=== PATIENT | female | born 1945 | race African-American/Black ===

== ENCOUNTER 2022-05-28 13:49 | Inpatient (IN) | payer OTHER, MEDICAID ==
[~2022-05-28] VITALS: Ht 165.1 cm; Wt 61.2 kg
[2022-05-28] MEDS ORDERED: MORPHINE SULFATE 4 MG/ML CPJ (NOT FOR IM USE) IV STA (14:26)
[2022-05-28] MEDS ORDERED: ONDANSETRON HCL 4MG/2ML INJ IV STA (14:26)
[2022-05-28] MEDS ORDERED: SODIUM CHLORIDE 0.9% 1,000 ML IV ONE (14:30)
[2022-05-28 16:17] LABS: BASOPHILS % 0.7 % (0.0-2.0); CHLORIDE 102 mEq/L (98-107); EOSINOPHILS % 0.5 % (0.0-5.0); HEMATOCRIT. 36.2 % (36.0-48.0); HEMOGLOBIN. 11.6 g/dL (12.0-16.0); LYMPHOCYTES % 14.3 % (20.0-50.0); MEAN CORPUSCULAR VOLUME 96.9 fL (81.0-99.0); MEAN PLATELET VOLUME 9.7 fl (7.4-10.4); MONOCYTES % 7.9 % (2.0-8.0); NEUTROPHILS % 76.6 % (40.0-76.0); PLATELET 162 x1000/uL (130-400); RED BLOOD CELL COUNT 3.74 mill/uL (4.2-5.4)
[2022-05-28 16:27] LABS: PARTIAL THROMBOPLASTIN TIME 31.9 sec (23.4-31.0); PROTHROMBIN TIME 10.3 sec (9.6-11.0)
[2022-05-28] MEDS ORDERED: SODIUM POLYSTYRENE SULFONATE 15 G/60 ML BOT PO ONE (17:00)
[2022-05-28] MEDS ORDERED: DEXTROSE 50% WATER 50ML SYRINGE IV ONE (17:00)
[2022-05-28] MEDS ORDERED: ALBUTEROL (0.083%) 2.5MG/3ML NEB HHN ONE (17:00)
[2022-05-28] MEDS ORDERED: SODIUM BICARBONATE 8.4% 1 MEQ/ML 50ML SYR IV ONE (17:00)
[2022-05-28] MEDS ORDERED: MORPHINE SULFATE 2 MG/ML CPJ (NOT FOR IM USE) IV ONE (19:15)
[2022-05-28] MEDS ORDERED: LABETALOL 5MG/ML SYR 20 MG/4 ML SYRINGE IV ONE (22:45)
[2022-05-29] MEDS ORDERED: LABETALOL 5MG/ML SYR 20 MG/4 ML SYRINGE IV ONE (00:15)
[2022-05-29] MEDS ORDERED: AMLODIPINE 5MG TABLET PO ONE (00:15)
[2022-05-29] MEDS ORDERED: ZOLPIDEM TARTRATE 5MG TABLET PO PRN (07:15)
[2022-05-29] MEDS ORDERED: GUAIFENESIN 200MG/10ML SUGAR FREE UDC PO PRN (07:15)
[2022-05-29] MEDS ORDERED: DOCUSATE SODIUM 100MG CAPSULE PO PRN (07:15)
[2022-05-29] MEDS ORDERED: IPRATROPIUM/ALBUTEROL 0.5-3(2.5)MG/3ML NEB NEB PRN (07:15)
[2022-05-29] MEDS ORDERED: ONDANSETRON HCL 4MG/2ML INJ IV PRN (07:15)
[2022-05-29] MEDS ORDERED: NITROGLYCERIN 0.4MG TABLET SL SL PRN (07:15)
[2022-05-29] MEDS ORDERED: ACETAMINOPHEN 325MG TABLET PO PRN ×2 (07:15)
[2022-05-29] MEDS: HYDRALAZINE HCL 50MG TABLET PO SCH ×2 (08:35→13:17)
[2022-05-29] MEDS: NIFEDIPINE XL 60MG TAB PO SCH ×2 (08:36→09:00)
[2022-05-29] MEDS: ASPIRIN 325MG EC TABLET PO SCH (08:37)
[2022-05-29] MEDS: FAMOTIDINE 20MG TABLET PO SCH (08:37)
[2022-05-29] MEDS: ENOXAPARIN 30MG/0.3ML SYR SUBCUT SCH (08:37)
[2022-05-29] MEDS: CLONIDINE 0.1MG TABLET PO PRN (08:38)
[2022-05-29] MEDS: NITROGLYCERIN OINT 1GM/INCH UDPKT TD SCH ×3 (08:39→23:05)
[2022-05-29 09:34] LABS: T4 FREE 0.98 ng/dL (0.76-1.46)
[2022-05-29 09:50] VITALS: BP 152/92
[2022-05-29] MEDS: DIPHENHYDRAMINE 50MG/ML VIAL IV PRN ×4 (11:41→22:30)
[2022-05-29 12:00] VITALS: BP 205/69
[2022-05-29 12:23] LABS: BASOPHILS % 0.7 % (0.0-2.0); CHLORIDE 105 mEq/L (98-107); EOSINOPHILS % 4.6 % (0.0-5.0); HEMOGLOBIN. 11.3 g/dL (12.0-16.0); LYMPHOCYTES % 19.2 % (20.0-50.0); MEAN CORPUSCULAR HEMOGLOBIN 31.7 pg (28.0-32.0); MEAN CORPUSCULAR VOLUME 97.9 fL (81.0-99.0); MEAN PLATELET VOLUME 9.2 fl (7.4-10.4); MONOCYTES % 9.8 % (2.0-8.0); NEUTROPHILS % 65.7 % (40.0-76.0); PLATELET 149 x1000/uL (130-400); RED BLOOD CELL COUNT 3.58 mill/uL (4.2-5.4); RED CELL DISTRIBUTION WIDTH 18.1 % (11.6-14.6)
[2022-05-29 12:30] LABS: PHOSPHORUS 7.9 mg/dL (2.5-4.9)
[2022-05-29] MEDS: MINOXIDIL 2.5MG TABLET PO SCH ×2 (15:03→22:30)
[2022-05-29 16:00] VITALS: BP 159/64
[2022-05-29 16:38] LABS: HEPATITIS B SURFACE ANTIGEN NEGATIVE
[2022-05-29 17:04] LABS: CREATINE KINASE MB FRACTION 3.1 ng/mL (0.5-3.6)
[2022-05-29 20:00] VITALS: BP 140/56
[2022-05-30] VITALS: BP 164/73
[2022-05-30] MEDS: CLONIDINE 0.1MG TABLET PO PRN (00:28)
[2022-05-30 04:00] VITALS: BP 124/54
[2022-05-30] MEDS: NITROGLYCERIN OINT 1GM/INCH UDPKT TD SCH ×3 (05:14→14:00)
[2022-05-30 07:16] LABS: BASOPHILS % 0.4 % (0.0-2.0); EOSINOPHILS % 4.3 % (0.0-5.0); HEMATOCRIT. 35.3 % (36.0-48.0); HEMOGLOBIN. 11.3 g/dL (12.0-16.0); LYMPHOCYTES % 14.3 % (20.0-50.0); MEAN CORPUSCULAR HEMOGLOBIN 31.3 pg (28.0-32.0); MEAN CORPUSCULAR VOLUME 98.1 fL (81.0-99.0); MEAN PLATELET VOLUME 9.5 fl (7.4-10.4); PLATELET 138 x1000/uL (130-400); RED CELL DISTRIBUTION WIDTH 17.7 % (11.6-14.6)
[2022-05-30 07:50] LABS: CHLORIDE 101 mEq/L (98-107)
[2022-05-30 08:00] VITALS: BP 125/54
[2022-05-30 08:10] LABS: PHOSPHORUS 5.1 mg/dL (2.5-4.9)
[2022-05-30] MEDS: FAMOTIDINE 20MG TABLET PO SCH (10:10)
[2022-05-30] MEDS: ASPIRIN 325MG EC TABLET PO SCH (10:10)
[2022-05-30] MEDS: MINOXIDIL 2.5MG TABLET PO SCH ×2 (10:11→20:53)
[2022-05-30] MEDS: NIFEDIPINE XL 60MG TAB PO SCH (10:11)
[2022-05-30] MEDS: ENOXAPARIN 30MG/0.3ML SYR SUBCUT SCH (10:12)
[2022-05-30 12:00] VITALS: BP 111/40
[2022-05-30 16:00] VITALS: BP 118/41
[2022-05-30] MEDS: TRAMADOL 50MG TABLET PO PRN (18:16)
[2022-05-30 20:00] VITALS: BP 119/66
[2022-05-31] VITALS: BP 120/54
[2022-05-31 00:51] LABS: CREATINE KINASE MB FRACTION 6.5 ng/mL (0.5-3.6)
[2022-05-31 04:00] VITALS: BP 141/55
[2022-05-31 06:44] LABS: BASOPHILS % 0.6 % (0.0-2.0); EOSINOPHILS % 5.4 % (0.0-5.0); HEMATOCRIT. 34.2 % (36.0-48.0); HEMOGLOBIN. 11.2 g/dL (12.0-16.0); LYMPHOCYTES % 27.7 % (20.0-50.0); MEAN CORPUSCULAR HEMOGLOBIN 31.4 pg (28.0-32.0); MEAN CORPUSCULAR VOLUME 95.7 fL (81.0-99.0); MEAN PLATELET VOLUME 9.4 fl (7.4-10.4); MONOCYTES % 13.5 % (2.0-8.0); NEUTROPHILS % 52.8 % (40.0-76.0); PLATELET 162 x1000/uL (130-400); RED BLOOD CELL COUNT 3.57 mill/uL (4.2-5.4)
[2022-05-31 07:13] LABS: PHOSPHORUS 5.5 mg/dL (2.5-4.9)
[2022-05-31] MEDS ORDERED: DIPHENHYDRAMINE 50MG/ML VIAL ONE (07:22)
[2022-05-31] MEDS ORDERED: LIDOCAINE HCL/PF 2% 20MG/ML 5 ML/VIAL ONE ×2 (07:22→08:44)
[2022-05-31] MEDS ORDERED: IODIXANOL 320MG/ML 100 ML BOTTLE IV ONE ×2 (07:23→07:24)
[2022-05-31] MEDS ORDERED: HEPARIN 1000 UNITS/ML 10ML ONE (07:23)
[2022-05-31] MEDS ORDERED: MIDAZOLAM HCL 2 MG/2 ML VIAL ONE (07:57)
[2022-05-31] MEDS ORDERED: FENTANYL CITRATE/PF 50MCG/ML 2ML VIAL ONE (07:58)
[2022-05-31] MEDS ORDERED: VERAPAMIL HCL 2.5 MG/1 ML 2ML VIAL IV ONE (08:01)
[2022-05-31] MEDS ORDERED: LIDOCAINE HCL/PF 1% 10 MG/ML 5ML VIAL ONE (08:46)
[2022-05-31] MEDS: NIFEDIPINE XL 60MG TAB PO SCH (09:00)
[2022-05-31] MEDS: MINOXIDIL 2.5MG TABLET PO SCH ×2 (09:00→21:28)
[2022-05-31] MEDS ORDERED: ACETAMINOPHEN 325MG TABLET PO PRN (09:15)
[2022-05-31] MEDS ORDERED: ATROPINE SULFATE 1MG/10ML SYR IV PRN (09:15)
[2022-05-31 12:30] VITALS: BP 154/57
[2022-05-31] MEDS: FAMOTIDINE 20MG TABLET PO SCH (12:48)
[2022-05-31] MEDS: ASPIRIN 325MG EC TABLET PO SCH (12:48)
[2022-05-31] MEDS: DIPHENHYDRAMINE 50MG/ML VIAL IV PRN (12:49)
[2022-05-31 16:30] VITALS: BP 150/61
[2022-05-31] MEDS: ENOXAPARIN 30MG/0.3ML SYR SUBCUT SCH (17:51)
[2022-05-31 20:00] VITALS: BP 108/54
[2022-06-01] VITALS (7 sets, daily range): BP systolic 105–159; BP diastolic 40–60
[2022-06-01 06:53] LABS: BASOPHILS % 0.7 % (0.0-2.0); EOSINOPHILS % 5.4 % (0.0-5.0); HEMATOCRIT. 33.3 % (36.0-48.0); HEMOGLOBIN. 11.1 g/dL (12.0-16.0); LYMPHOCYTES % 22.1 % (20.0-50.0); MEAN CORPUSCULAR HEMOGLOBIN 31.5 pg (28.0-32.0); MEAN CORPUSCULAR VOLUME 94.7 fL (81.0-99.0); MEAN PLATELET VOLUME 9.1 fl (7.4-10.4); MONOCYTES % 12.3 % (2.0-8.0); NEUTROPHILS % 59.5 % (40.0-76.0); PLATELET 172 x1000/uL (130-400); RED BLOOD CELL COUNT 3.52 mill/uL (4.2-5.4); RED CELL DISTRIBUTION WIDTH 17.5 % (11.6-14.6)
[2022-06-01] MEDS: FAMOTIDINE 20MG TABLET PO SCH (08:29)
[2022-06-01] MEDS: ENOXAPARIN 30MG/0.3ML SYR SUBCUT SCH (08:30)
[2022-06-01] MEDS: MINOXIDIL 2.5MG TABLET PO SCH ×2 (08:30→20:39)
[2022-06-01] MEDS: ASPIRIN 325MG EC TABLET PO SCH (08:30)
[2022-06-01] MEDS: NIFEDIPINE XL 60MG TAB PO SCH (08:30)
[2022-06-01] MEDS: TRAMADOL 50MG TABLET PO PRN (20:39)
[2022-06-02] VITALS: BP 147/53
[2022-06-02 04:00] VITALS: BP 106/58
[2022-06-02 08:00] VITALS: BP 160/56
[2022-06-02] MEDS: NIFEDIPINE XL 60MG TAB PO SCH (09:00)
[2022-06-02] MEDS: ASPIRIN 325MG EC TABLET PO SCH (09:13)
[2022-06-02] MEDS: MINOXIDIL 2.5MG TABLET PO SCH (09:13)
[2022-06-02] MEDS: FAMOTIDINE 20MG TABLET PO SCH (09:15)
[2022-06-02] MEDS: ENOXAPARIN 30MG/0.3ML SYR SUBCUT SCH (09:17)
[2022-06-02 12:00] VITALS: BP 136/49
== END 2022-06-02 17:47 | disposition home or self-care (01) | DRG 280 ==
LOC: EDBD 13:57 → ER 13:57 → MICUSO 05-29 03:59 → EDBEDREQDT 05-29 04:07 → EDBEDREQ 05-29 04:07 → EDBEDREQTM 05-29 04:07 → SUPCPDRO 05-29 07:08 → ENRESERV 05-29 07:16 → 6WST 05-29 10:16
PROVIDERS: ADMIT Internal Medicine; ATTEND Internal Medicine
PROC: 5A1D70Z Performance of Urinary Filtration, Intermittent, Less than 6 Hours Per Day (ICD-10-PCS; 2022-05-29)
PROC: 4A023N7 Measurement of Cardiac Sampling and Pressure, Left Heart, Percutaneous Approach (ICD-10-PCS; principal; 2022-05-31)
PROC: B211YZZ Fluoroscopy of Multiple Coronary Arteries using Other Contrast (ICD-10-PCS; 2022-05-31)
PROC: B215YZZ Fluoroscopy of Left Heart using Other Contrast (ICD-10-PCS; 2022-05-31)
PROC: 5A1D70Z Performance of Urinary Filtration, Intermittent, Less than 6 Hours Per Day (ICD-10-PCS; 2022-05-31)
DX: I21.4 Non-ST elevation (NSTEMI) myocardial infarction (principal); I50.33 Acute on chronic diastolic (congestive) heart failure; N18.6 End stage renal disease; I13.2 Hypertensive heart and chronic kidney disease with heart failure and with stage 5 chronic kidney disease, or end stage renal disease; G93.40 Encephalopathy, unspecified; I16.1 Hypertensive emergency; I50.30 Unspecified diastolic (congestive) heart failure; D63.1 Anemia in chronic kidney disease; E11.649 Type 2 diabetes mellitus with hypoglycemia without coma; Z20.822 Contact with and (suspected) exposure to COVID-19; E83.39 Other disorders of phosphorus metabolism; I27.20 Pulmonary hypertension, unspecified; E11.22 Type 2 diabetes mellitus with diabetic chronic kidney disease; I16.0 Hypertensive urgency; E87.5 Hyperkalemia; E78.5 Hyperlipidemia, unspecified; I25.10 Atherosclerotic heart disease of native coronary artery without angina pectoris; Z99.2 Dependence on renal dialysis; Z91.15 Patient's noncompliance with renal dialysis; Z82.49 Family history of ischemic heart disease and other diseases of the circulatory system; Z83.3 Family history of diabetes mellitus
CPT/HCPCS: 36415; 70480; 71045; 71250; 80048; 80053; 80061; 82550; 82553; 82962; 83036; 83735; 83880; 84100; 84439; 84443; 84484; 85025; 85379; 86705; 86709; 86803; 87340; 87426; 93005; 93306; 93458; 93970; 94640; 99285; C1760; C1769; C1887; C1893; C9803; J1200; J1644; J1650; J2250; J2270; J2405; J3010; J3490; J7030; L1830; Q9967